=== PATIENT | female | born 1955 | race Caucasian/White ===

== ENCOUNTER → 2023-05-08 | Outpatient (CLI) | payer MEDICARE ==
[2023-05-08 22:14] LABS: ALT 21 U/L (8-44); AST 23 U/L (13-35); Albumin 4.6 g/dL (3.8-4.9); Albumin/Globulin Ratio 1.92 Ratio (1.60-3.17); Alkaline Phosphatase 111 U/L (41-126); BUN/Creat Ratio 16.44 Ratio (12.00-20.00); Blood Urea Nitrogen 14.8 mg/dL (9.0-27.0); Calcium 9.9 mg/dL (8.7-10.3); Carbon Dioxide 25.7 mmol/L (21.6-31.8); Chloride 102 mmol/L (96-109); Globulin 2.4 g/dL (1.6-3.3); Glucose 82 mg/dL (70-110); Potassium 4.3 mmol/L (3.5-5.5); Sodium 143 mmol/L (135-145); Total Bilirubin 0.4 mg/dL (0.3-1.2)
== END | disposition home or self-care (01) ==
LOC: LABWHC1 15:09
PROVIDERS: ATTEND Internal Medicine Interventional Cardiology
DX: I48.3 Typical atrial flutter (principal)
CPT/HCPCS: 36415; 80053; 84443

== ENCOUNTER 2023-05-15 06:29 | Day surgery (SDC) | payer MEDICARE ==
[~2023-05-15 06:29] MED LIST: SODIUM CHLORIDE 0.9% 1,000 ML IV SCH
[2023-05-15] MEDS: SODIUM CHLORIDE 0.9% 500 ML 500 ML IV ONE (06:58)
[2023-05-15 07:11] VITALS: TEMP 97.1
[2023-05-15] MEDS ORDERED: LIDOCAINE 1% INJ 10MG/ML (20 ML MDV) ONE (07:42)
[2023-05-15] MEDS ORDERED: KETAMINE HCL IN 0.9 % NACL 50 MG/5 ML SYRINGE ONE (07:42)
[2023-05-15] MEDS ORDERED: PROPOFOL 10 MG/ML 20 ML VIAL IV ONE (07:42)
[2023-05-15] MEDS ORDERED: MIDAZOLAM 2 MG/2 ML VIAL ONE (07:42)
[2023-05-15] MEDS: BENZOCAINE SPRAY 1 CAN TOPICAL ONE (07:47)
[2023-05-15] MEDS ORDERED: MELATONIN 3 MG TABLET PO PRN (08:10)
--- NOTE | 2023-05-15 08:14 | P.PCN ---
Date of Procedure: 05/15/23 Description of Procedure: Indication: Atrial fibrillation Procedure Description: After explaining the procedure to the patient, it's risk and complications, blood pressure, heart rate and O2 saturation were monitored. The throat was sprayed with Cetacaine. Patient received sedation per anesthesia department. The probe was introduced into the esophagus without difficulty. Images were obtained. Following that, the probe was removed. There was no immediate complication. Findings: Left atrial size is dilated, left atrial appendage is normal. Left ventricle systolic function is preserved with no segmental wall motion abnormality. The aortic valve, mitral valve and tricuspid valve appears to be normal. No pericardial fusion was noted. Contrast bubble study revealed no shunting across the interatrial septum. Normal appearance of the descending thoracic aorta Doppler: Pulse wave and color Doppler were obtained, and revealed moderate mitral with mild tricuspid regurgitation there was no shunting across the interatrial septum Conclusion: 1. Dilated left atrium with normal appearance of the left atrial appendage 2. Normal ventricle size and systolic function 3. Moderate mitral with mild tricuspid regurgitation 4. No evidence of shunting across the interatrial septum 5. Normal appearance of the descending thoracic aorta Cardioversion: After performing SHANTE and obtaining sedated state per anesthesia department a synchronized biphasic cardioversion using 200 J was performed with holiness of sinus mechanism, there was no immediate complications.
[2023-05-15 08:26] VITALS: PULSE 65
[2023-05-15] MEDS: SODIUM CHLORIDE 0.9% 1,000 ML IV ONE (08:32)
[2023-05-15] MEDS ORDERED: ENALAPRIL MALEATE 5 MG PO SCH (09:00)
[2023-05-15] MEDS ORDERED: BUPROPION HCL 200 MG PO SCH (09:00)
[2023-05-15] MEDS ORDERED: APIXABAN 5 MG TAB PO SCH (09:00)
[2023-05-15] MEDS ORDERED: METOPROLOL SUCCINATE (ER) 50 MG TAB.ER.24H PO SCH (09:00)
[2023-05-15] MEDS ORDERED: LEVOTHYROXINE 100 MCG TAB PO SCH (09:00)
[2023-05-15] MEDS ORDERED: MELOXICAM 7.5 MG TAB PO SCH (09:00)
[2023-05-15] MEDS ORDERED: NON FORMULARY DRUG (Buspirone Hcl [Buspar] 30 MG Tablet) PO SCH (09:00)
[2023-05-15 09:41] VITALS: BP 108/49; RESP 16
[2023-05-16] MEDS ORDERED: LORATADINE 10 MG TAB PO SCH (09:00)
== END 2023-05-15 10:23 | disposition home or self-care (01) ==
LOC: OR 06:29
PROVIDERS: ATTEND Internal Medicine Interventional Cardiology
DX: I48.91 Unspecified atrial fibrillation (principal); I48.3 Typical atrial flutter; I08.1 Rheumatic disorders of both mitral and tricuspid valves; I42.9 Cardiomyopathy, unspecified; R06.02 Shortness of breath; R07.9 Chest pain, unspecified; I10 Essential (primary) hypertension; E78.5 Hyperlipidemia, unspecified; F17.210 Nicotine dependence, cigarettes, uncomplicated; Z79.01 Long term (current) use of anticoagulants; Z82.49 Family history of ischemic heart disease and other diseases of the circulatory system; Z79.51 Long term (current) use of inhaled steroids; Z79.899 Other long term (current) drug therapy; Z79.1 Long term (current) use of non-steroidal anti-inflammatories (NSAID); Z79.890 Hormone replacement therapy; J45.909 Unspecified asthma, uncomplicated; E03.9 Hypothyroidism, unspecified
CPT/HCPCS: 93312; 93320; 93325; 92960; J2250; J2001; J2704

== ENCOUNTER → 2023-06-07 | Day surgery (SDC) | payer MEDICARE ==
[2023-06-04 15:23] VITALS: BMI 63.1
[~2023-06-07] MED LIST changes: +ALPRAZolam 0.25 MG TAB PO PRN; +ALPRAZolam 0.5 MG TAB PO PRN; +ASPIRIN 325 MG TAB PO STA; +BUPROPION HCL 200 MG PO SCH; +ENALAPRIL MALEATE 5 MG PO SCH; +LEVOTHYROXINE 100 MCG TAB PO SCH; +LIDOCAINE 1% INJ 10MG/ML (20 ML MDV) ONE; +METOPROLOL SUCCINATE (ER) 50 MG TAB.ER.24H PO SCH; +MONTELUKAST 10 MG TAB PO SCH; +NITROGLYCERIN SL TABS 0.4 MG TAB SUBLINGUAL PRN; +NON FORMULARY DRUG (Buspirone Hcl [Buspar] 30 MG Tablet) PO SCH; +RX INFO: IV CONTRAST WAS GIVEN 1 EACH MISC MISCELLANE PRN; +SODIUM CHLORIDE 0.9% 1,000 ML in EMPTY BAG 1 BAG IV SCH; +VERAPAMIL 2.5 MG/ML 2 ML AMP ONE; +fentaNYL (PF) 50 MCG/ML 2 ML AMP ONE
[2023-06-07] MEDS: SODIUM CHLORIDE 0.9% 1,000 ML IV ONE (06:03)
[2023-06-07 06:29] LABS: Basophils # (A) 0.1 k/uL (0-0.2); Basophils % (A) 1 %; Eosinophils # (A) 0.2 k/uL (0-0.7); Eosinophils % (A) 4 %; HCT 41.2 % (34.0-46.0); HGB 13.4 gm/dL (11.4-16.0); Lymphocytes # (A) 1.2 k/uL (1.0-4.8); Lymphocytes % (A) 19 %; MCH 29.8 pg (25.0-35.0); MCHC 32.5 g/dL (31.0-37.0); MCV 91.8 fL (80.0-100.0); Mean Platelet Volume 7.7; Monocytes # (A) 0.4 k/uL (0-1.0); Monocytes % (A) 7 %; Neutrophils # (A) 4.1 k/uL (1.3-7.7); Neutrophils % (A) 67 %; Platelet Count 204 k/uL (150-450); RBC 4.48 m/uL (3.80-5.40); RDW 13.7 % (11.5-15.5); WBC 6.2 k/uL (3.8-10.6)
[2023-06-07 06:56] VITALS: TEMP 99.4
[2023-06-07] MEDS: LIDOCAINE 2% (PF) 20 MG/ML 5 ML VIAL SQ ONE (07:42)
[2023-06-07] MEDS: VERAPAMIL 2.5 MG/ML 4 ML VIAL INTRAARTER ONE (07:44)
[2023-06-07] MEDS: fentaNYL (PF) 50 MCG/1 ML VIAL IVP ONE (07:47)
[2023-06-07] MEDS: HEPARIN SODIUM 1,000 UN/ML (10ML VL) IVP ONE (07:50)
[2023-06-07] MEDS: IOPAMIDOL-370 100ML BTL INTRATHECA ONE (07:55)
--- NOTE | 2023-06-07 08:13 | P.CARDCATH ---
Date of Procedure: 06/07/23 Description of Procedure: Cardiac Catheterization: The patient is a 68-year-old female with known history of hypertension and hyperlipidemia who was noted to be in atrial flutter and had symptoms of progressive dyspnea, she had an abnormal MPI. Recommendations were made regarding cardiac catheterization, the risks and the complications were discussed with the patient who is in full understanding and agreement. Procedure Description: Patient was brought to [facility] in fasting semi-sedated state after receiving Fentanyl and Benadryl achieiving moderate conscious sedated state. Using Xylocaine Anesthesia and modified Seldinger technique, a 6-Serbian sheath was introduced in the right radial artery . Subsequently, selective coronary angiography was performed using a 5-Serbian 3.5 bend Jillian catheter. Multiple views of the coronary artery including hemiaxial views were obtained. The right Jillian catheter was used to cross the aortic valve and LVEDP was calculated. Following that, catheter and sheath were removed. Hemostasis was obtained with deployment of vascular band . There was no immediate complication. Patient was returned to room in stable condition. Of note, the patient received a total of 5000 units of intravenous heparin as well as intra-arterial verapamil. Findings: Left main: This is a large size vessel, bifurcating into left circumflex and LAD, left main has no obstructive disease. LAD: This is a large size vessel giving rise to 2 diagonal branch, the second 1 is large in caliber. The LAD tapers down in the distal third. The LAD and its branches have no obstructive disease Left circumflex: This is a nondominant vessel giving rise to 2 obtuse marginal branch the second 1 is large in caliber, the left circumflex and its branches have no obstructive disease RCA: This is a large dominant vessel, bifurcating distally to PDA and PLV the right coronary artery and its branches have no evidence of obstructive disease Left Ventriculogram: Not performed Hemodynamics: There was no gradient across the aortic valve, LVEDP was 14-18 mmHg Conclusion: 1. No evidence of obstructive coronary disease 2. Right dominance Recommendations: I have recommended to continue medical therapy with the aggressive coronary risks modification this been initiated. She will resume her anticoagulation tomorrow. The findings and the recommendations were discussed with the patient and the family and they were in full understanding and agreement. Duration of sedation is 14 minutes.
[2023-06-07 08:29] VITALS: RESP 20
[2023-06-07 15:03] VITALS: BP 152/62; PULSE 69
== END | disposition home or self-care (01) ==
LOC: CATHCVL 05:43
PROVIDERS: ATTEND Internal Medicine Interventional Cardiology
DX: I48.3 Typical atrial flutter (principal); I10 Essential (primary) hypertension; E78.5 Hyperlipidemia, unspecified; F17.210 Nicotine dependence, cigarettes, uncomplicated; Z82.49 Family history of ischemic heart disease and other diseases of the circulatory system; Z79.01 Long term (current) use of anticoagulants; Z79.899 Other long term (current) drug therapy
CPT/HCPCS: 93458; 85025; C1769 ×2; C1894; J1644; Q9967; J2001; J3010

== ENCOUNTER 2023-08-22 15:45 | Emergency (ER) | payer MEDICARE ==
[2023-08-22 15:50] VITALS: TEMP 98.5
--- NOTE | 2023-08-22 16:27 | ED ---
General Adult HPI - General Chief complaint: Fall Stated complaint: L knee pain Time Seen by Provider: 08/22/23 16:00 Source: patient, RN notes reviewed, old records reviewed Mode of arrival: ambulatory Limitations: no limitations - History of Present Illness Initial comments: This is a 68-year-old female who presents emergency department complaining of left knee pain. Patient states she fell on Saturday and has been achy ever since but now it is hurting a little more and there is a little more ecchymosis. Patient states she did hit her head but she did not lose consciousness and was not days. Patient denies any neck pain. Patient denies any numbness weakness. Patient states she does have a bruise on her upper left arm but she has full range of motion and is not concerned about any fractures there. Patient states she does have full range of motion of her left knee even though it hurts - Related Data Home Medications Medication Instructions Recorded Confirmed Acetaminophen [Tylenol Extra 500 mg PO DIRECTED PRN 05/14/23 06/04/23 Strength] Albuterol Sulfate [Proair 2 puff INHALATION DIRECTED PRN 05/14/23 06/04/23 Digihaler] Apixaban [Eliquis] 5 mg PO BID 05/14/23 06/07/23 Enalapril Maleate 5 mg PO DAILY 05/14/23 06/07/23 Ergocalciferol [Vitamin D2 (1250 1,250 mcg PO TU 05/14/23 06/07/23 Mcg = 33004 Iu)] Fluticasone Nasal [place] [Flonase 1 spray EA NOSTRIL DIRECTED 05/14/23 06/07/23 Nasal [place]] Fluticasone Propion/Salmeterol 1 puff INHALATION BID 05/14/23 06/07/23 [Advair 500-50 Diskus] Furosemide [Lasix] 40 mg PO DAILY PRN 05/14/23 06/07/23 Levothyroxine Sodium 100 mcg PO DAILY 05/14/23 06/07/23 Loratadine 10 mg pe PO DAILY 05/14/23 06/04/23 Melatonin 3 mg PO HS PRN 05/14/23 06/04/23 Meloxicam 7.5 mg PO BID 05/14/23 06/07/23 Metoprolol Succinate (ER) [Toprol 50 mg PO BID 05/14/23 06/07/23 Xl] Montelukast [Singulair] 10 mg PO HS 05/14/23 06/07/23 Otc Coricidin 1 tab PO DIRECTED PRN 05/14/23 06/04/23 Otc Equate Eye Care Supp 1 tab PO DAILY 05/14/23 06/07/23 Otc Restless Leg Supp 1 tab PO HS PRN 05/14/23 06/04/23 Potassium Chloride ER [K-Dur 10] 10 meq PO DAILY 05/14/23 06/07/23 Unk Multi Vitamin 1 tab PO DAILY 05/14/23 06/04/23 Unk Vitamin B12 1 tab PO DAILY 05/14/23 06/04/23 Unk Vitamin C 1 tab PO DAILY 05/14/23 06/04/23 buPROPion HCL [buPROPion HCL SR] 100 mg PO BID 05/14/23 06/07/23 busPIRone HCL [Buspar] 15 mg PO BID 05/14/23 06/07/23 diphenhydrAMINE HCL [Benadryl 25 mg PO DIRECTED PRN 05/14/23 06/04/23 Allergy] Aspirin 81 mg PO DIRECTED PRN 06/07/23 06/07/23 Allergies Allergy/AdvReac Type Severity Reaction Status Date / Time No Known Allergies Allergy Verified 08/22/23 15:50 Review of Systems ROS Statement: Those systems with pertinent positive or pertinent negative responses have been documented in the HPI. ROS Other: All systems not noted in ROS Statement are negative. Past Medical History Past Medical History: Atrial Fibrillation, Asthma, Hypertension, Osteoarthritis (OA), Thyroid Disorder Additional Past Medical History / Comment(s): hx of heart racing, SUAREZ worse recently since being off theophylline per pt., nausea and dizziness, allergies and sinus issues History of Any Multi-Drug Resistant Organisms: None Reported Past Surgical History: Joint Replacement Additional Past Surgical History / Comment(s): achilles tendon repair, rt knee replaced, left hip replaced, cardioversion/SHANTE Past Anesthesia/Blood Transfusion Reactions: No Reported Reaction Past Psychological History: Depression Smoking Status: Former smoker Past Alcohol Use History: None Reported Past Drug Use History: None Reported - Past Family History Mother Family Medical History: Cancer Additional Family Medical History / Comment(s): colon cancer. Father Additional Family Medical History / Comment(s): alzheimer. Brother(s) Family Medical History: Cancer Additional Family Medical History / Comment(s): multiple myeloma Sister(s) Family Medical History: AFIB Additional Family Medical History / Comment(s): pacemaker General Exam - General Exam Comments Initial Comments: GENERAL: Patient is well-developed and well-nourished. Patient is nontoxic and well- hydrated and is in mild distress. ENT: Neck is soft and supple. No significant lymphadenopathy is noted. Oropharynx is clear. Moist mucous membranes. Neck has full range of motion without eliciting any pain. EYES: The sclera were anicteric and conjunctiva were pink and moist. Extraocular movements were intact and pupils were equal round and reactive to light. Eyelids were unremarkable. SKIN: Skin is clear with no lesions or rashes and otherwise unremarkable. NEUROLOGIC: Patient is alert and oriented x3. Cranial nerves II through XII are grossly intact. Motor and sensory are also intact. Normal speech, volume and content. Symmetrical smile. MUSCULOSKELETAL: Normal extremities with adequate strength and full range of motion. Though the left knee has full range of motion it is ecchymotic on the inferior and lateral aspect of the knee and it is tender to palpation. LYMPHATICS: No significant lymphadenopathy is noted PSYCHIATRIC: Normal psychiatric evaluation. Limitations: no limitations Course Vital Signs 08/22/23 15:46 Temperature 98.5 F Pulse Rate 74 Respiratory 17 Rate Blood Pressure 167/94 O2 Sat by Pulse 97 Oximetry Medical Decision Making - Medical Decision Making Was pt. sent in by a medical professional or institution (, PA, [facility], urgent care, hospital, or group home...) When possible be specific @ -No Did you speak to anyone other than the patient for history (EMS, parent, family, police, friend...)? What history was obtained from this source @ -No Did you review nursing and triage notes (agree or disagree)? Why? @ -I reviewed and agree with nursing and triage notes Were old charts reviewed (outside hosp., previous admission, EMS record, old EKG, old radiological studies, urgent care reports/EKG's, group home records)? Report findings @ -No old charts were reviewed Differential Diagnosis? @ -Differential Musculoskeletal Muscular strain, contusion, ligament sprain, fracture, arthritis, septic arthritis, bursitis, cellulitis, muscle spasm, nerve compression, DVT, arterial occlusion, herpes zoster, electrolyte abnormality, tumor.... This is not meant to be in all inclusive list EKG interpreted by me (3pts min.). @ -As above X-rays interpreted by me (1pt min.). @ -X-ray shows a lucency through the tibial plateau questionable acute fracture CT interpreted by me (1pt min.). @ -CT scan of the knee shows no acute fracture only osteophytes and severe os teoarthritis U/S interpreted by me (1pt. min.). @ -None done What testing was considered but not performed or refused? (CT, X-rays, U/S, labs)? Why? @ -None What meds were considered but not given or refused? Why? @ -None Did you discuss the management of the patient with other professionals (jasen kent i.eJcarlos Mock, PA, [facility], lab, RT, psych nurse, social media manager, trim mounter, teacher, campus security officer, case management associate)? Give summary @ -No Was smoking cessation discussed for >3mins.? @ -No Was critical care preformed (if so, how long)? @ -No Were there social determinants of health that impacted care today? How? (Homelessness, low income, unemployed, alcoholism, drug addiction, transportation, low edu. Level, literacy, decrease access to med. care, alf, rehab)? @ -No Was there de-escalation of care discussed even if they declined (Discuss DNR or withdrawal of care, Hospice)? DNR status @ -No What co-morbidities impacted this encounter? (DM, HTN, Smoking, COPD, CAD, Cancer, CVA, ARF, Chemo, Hep., AIDS, mental health diagnosis, sleep apnea, morbid obesity)? @ -None Was patient admitted / discharged? Hospital course, mention meds given and route, prescriptions, significant lab abnormalities, going to OR and other pertinent info. @ -Patient had x-rays and a CAT scan of the knee and then it appears to be no fracture. Patient is instructed follow-up with orthopedics if it continues to bother. Undiagnosed new problem with uncertain prognosis? @ -No Drug Therapy requiring intensive monitoring for toxicity (Heparin, Nitro, Insulin, Cardizem)? @ -No Were any procedures done? @ -No Diagnosis/symptom? @ -Minor head trauma Acute, or Chronic, or Acute on Chronic? @ -Acute Uncomplicated (without systemic symptoms) or Complicated (systemic symptoms)? @ -Uncomplicated Side effects of treatment? @ -No Exacerbation, Progression, or Severe Exacerbation? @ -No Poses a threat to life or bodily function? How? (Chest pain, [place], [place], pneumonia, PE, COPD, DKA, ARF, appy, cholecystitis, CVA, Diverticulitis, Homicidal, Suicidal, threat to staff... and all critical care pts) @ -No Diagnosis/symptom? @ -Contusion knee Acute, or Chronic, or Acute on Chronic? @ -Acute Uncomplicated (without systemic symptoms) or Complicated (systemic symptoms)? @ -Uncomplicated Side effects of treatment? @ -None Exacerbation, Progression, or Severe Exacerbation] @ -No Poses a threat to life or bodily function? @ -No - Lab Data Result diagrams: 08/22/23 16:45 Lab Results 08/22/23 Range/Units 16:45 WBC 7.3 (3.8-10.6) k/uL RBC 4.18 (3.80-5.40) m/uL Hgb 12.5 (11.4-16.0) gm/dL Hct 39.0 (34.0-46.0) % MCV 93.3 (80.0-100.0) fL MCH 29.9 (25.0-35.0) pg MCHC 32.0 (31.0-37.0) g/dL RDW 13.1 (11.5-15.5) % Plt Count 209 (150-450) k/uL MPV 8.4 Neutrophils % 75 % Lymphocytes % 15 % Monocytes % 6 % Eosinophils % 2 % Basophils % 1 % Neutrophils # 5.5 (1.3-7.7) k/uL Lymphocytes # 1.1 (1.0-4.8) k/uL Monocytes # 0.4 (0-1.0) k/uL Eosinophils # 0.2 (0-0.7) k/uL Basophils # 0.1 (0-0.2) k/uL Disposition Clinical Impression: Fall, Minor head injury, Knee contusion, Arthritis of knee Disposition: HOME SELF-CARE Instructions (If sedation given, give patient instructions): Fall Prevention for Older Adults (ED), Osteoarthritis (ED) Is patient prescribed a controlled substance at d/c from ED?: No Referrals: Marcia Leong MD [Primary Care Provider] - 1-2 days Time of Disposition: 18:08
[2023-08-22 16:57] LABS: Basophils # (A) 0.1 k/uL (0-0.2); Basophils % (A) 1 %; Eosinophils # (A) 0.2 k/uL (0-0.7); Eosinophils % (A) 2 %; HGB 12.5 gm/dL (11.4-16.0); Lymphocytes # (A) 1.1 k/uL (1.0-4.8); Lymphocytes % (A) 15 %; MCH 29.9 pg (25.0-35.0); MCV 93.3 fL (80.0-100.0); Mean Platelet Volume 8.4; Monocytes # (A) 0.4 k/uL (0-1.0); Monocytes % (A) 6 %; Neutrophils # (A) 5.5 k/uL (1.3-7.7); Neutrophils % (A) 75 %; Platelet Count 209 k/uL (150-450); RBC 4.18 m/uL (3.80-5.40); RDW 13.1 % (11.5-15.5); WBC 7.3 k/uL (3.8-10.6)
--- NOTE | 2023-08-22 17:03 | XR ---
EXAMINATION TYPE: XR knee complete LT DATE OF EXAM: 08/22/2023 4:46 PM CLINICAL INDICATION:Female, 68 years old with history of Fall; COMPARISON: None. TECHNIQUE: XR knee complete LT; examined in Frontal, lateral and oblique projections. FINDINGS: Tricompartmental osteophyte formation involving the femoral condyles, tibial plateau and patella. Severe medial knee joint space narrowing.. Osteophyte along the medial aspect of the tibial plateau with lucency present, possibly representing fracture. IMPRESSION: 1. Lucency through the medial tibial plateau osteophyte possibly representing fracture. Correlate wit h joint pain and medial knee. 2. Severe tricompartmental osteoarthritic changes worse in the medial joint.
--- NOTE | 2023-08-22 17:55 | CT ---
EXAMINATION TYPE: CT knee LT wo con CT DLP: 893.5 mGycm, Automated exposure control for dose reduction was used. DATE OF EXAM: 08/22/2023 5:38 PM COMPARISON: . Extremity radiograph same day. CLINICAL INDICATION:Female, 68 years old with history of Fall; PHH, Fall, Left knee pain and bruising . TECHNIQUE: Axial images were obtained of the CT knee LT wo con, Additional coronal and sagittal refor matted images and soft tissue and bone window were obtained for review. 3-D reconstruction was create d on a separate workstation. Contrast used: mL of , (None if empty) Oral contrast used: (None if empty) FINDINGS: Large osteophytes involving the tibial plateau, femoral condyles and patella. There is comp lete joint space loss most pronounced in the medial aspect of the knee. There is [id number] articul ation with sclerosis involving the medial knee. There is no evidence of fracture, subluxation, or dis location. No significant soft tissue swelling or joint effusion is identified. No focal muscular atr ophy or edema is identified. No radiopaque foreign body identified. IMPRESSION: 1. Lucency seen on plain film correlates with osteophyte which has a chronic appearance. No acute fr acture. 2. Severe osteoarthrosis changes of the knee.
[2023-08-22 18:38] VITALS: BP 160/90; PULSE 86; RESP 18
== END 2023-08-22 18:58 | disposition home or self-care (01) ==
LOC: EC 15:45
DX: S80.02XA Contusion of left knee, initial encounter (principal); S09.90XA Unspecified injury of head, initial encounter; M17.12 Unilateral primary osteoarthritis, left knee; Z87.891 Personal history of nicotine dependence; W18.30XA Fall on same level, unspecified, initial encounter
CPT/HCPCS: 36415; 85025; 99284